=== PATIENT | male | born 1995 | race Caucasian/White ===

== ENCOUNTER 2016-11-11 19:20 | Emergency (ER) | payer BC ==
[~2016-11-11] VITALS: Ht 185.4 cm; Wt 80.0 kg
[2016-11-11 19:33] VITALS: TEMP 37; Ht 185.4 cm; Wt 80.0 kg
[2016-11-11] MEDS ORDERED: PSEU30TA20 PO (20:03)
--- NOTE | 2016-11-11 20:09 | EMERGENCY ROOM VISIT NOTE ---
ED Visit Note First contact with patient: 19:48 CHIEF COMPLAINT: knee pain HISTORY OF PRESENT ILLNESS: This 21-year-old male patient presents to the emergency department ambulatory after sustaining an injury to the right knee when playing basketball. The patient denies any other injuries besides their knee. The patient denies swelling or bruising. There is pain over the lateral aspect. They rate the pain as sharp and 7/10. The patient states they are not able to walk on it. No numbness or tingling. The patient states that he has had previous anterior cruciate ligament, meniscus and MCL tear which required surgical repair. Since then he has had LCL tear. No ankle, foot or hip pain. REVIEW OF SYSTEMS: A 6 system review of systems was completed with positives and pertinent negatives listed in the HPI. ALLERGIES: No known drug allergies MEDICATIONS: None PMH: None SOCIAL HISTORY: The patient lives locally. He is a student PHYSICAL EXAM: Vital Signs: Reviewed Nurse's notes, vital signs stable. GENERAL : This is a 21-year-old male, no acute distress, but appears in pain, well- developed, well-nourished. MENTAL STATUS: Alert, oriented to person place and time, and cooperative. MUSCULOSKELETAL: The right knee is non-swollen. There is no ecchymosis. There is no joint effusion present. The patient is tender over the lateral aspect of the right knee. There is lateral joint line tenderness. The patella does not subluxate. Range of motion is intact. Strength of the quads and hamstrings is 5/5. Brandon's is negative. Alex's and Anterior Drawer tests are negative. There is pain with varus and valgus stressing. The foot and toes are warm and well-perfused. Dorsalis pedis pulse 2+. Sensation to pain and light touch is intact. Capillary refill less than 2 seconds. EMERGENCY DEPARTMENT COURSE: I examined the patient. X-rays of the right knee were reviewed by myself and read by radiology and reveal no acute fracture. The patient was placed in a knee immobilizer under my direction and the position was satisfactory. The patient declined crutches stating he has them at home. He should follow-up with orthopedics for further evaluation and management. He declined any pain medication. The patient was discharged home in good condition. DIAGNOSIS: Right knee sprain DISCHARGE INSTRUCTIONS: Ice and elevate knee for swelling and pain. Wear knee immobilizer when up and about. Use crutches - minimal weight on foot. Ibuprofen 600 mg every 6 hrs for pain. Follow-up withOrthopedics for further evaluation and treatment - call for appointment. RIGHT KNEE 3 VIEWS CLINICAL HISTORY: right knee pain Right pain COMPARISON: 10/30/2015 DISCUSSION: J spaces are well-preserved. Prior anterior cruciate ligament repair. No significant joint effusion. There is no evidence for soft tissue swelling. IMPRESSION: No acute process. Current/Historical Medications Scheduled PRN Pseudoephedrine (Sudafed), 60 MG PO TID PRN for FLU Allergies Coded Allergies: No Known Allergies (Unverified , 01/08/16) Vital Signs Date Time Temp Pulse Resp B/P Pulse Ox O2 Delivery O2 Flow Rate FiO2 11/11/16 21:15 76 18 118/78 99 11/11/16 20:51 76 18 118/78 99 Room Air 11/11/16 19:33 37.0 96 18 93/54 99 Room Air Departure Information Impression Primary Impression: Sprain of knee Dispostion Home / Self-Care Condition GOOD Referrals No Doctor, Assigned (PCP) Johnny Dickinson M.D. Patient Instructions ED Sprain Knee, [facility] [place] [facility] Additional Instructions Ice and elevate knee for swelling and pain. Wear knee immobilizer when up and about. Use crutches - minimal weight on foot. Ibuprofen 600 mg every 6 hrs for pain. Follow-up withOrthopedics for further evaluation and treatment - call for appointment. Problem Qualifiers Primary Impression: Sprain of knee Encounter type: initial encounter Laterality: right
--- NOTE | 2016-11-11 20:40 | DIAGNOSTIC IMAGING REPORT ---
RIGHT KNEE 3 VIEWS CLINICAL HISTORY: right knee pain Right pain COMPARISON: 10/30/2015 DISCUSSION: J spaces are well-preserved. Prior anterior cruciate ligament repair. No significant joint effusion. There is no evidence for soft tissue swelling. IMPRESSION: No acute process. Electronically signed by: Devyn Travis M.D. 11/11/2016 8:39 PM Dictated Date/Time: 11/11/2016 8:38 PM
[2016-11-11 21:15] VITALS: BP 118/78; PULSE 76; O2SAT 99
== END 2016-11-11 21:15 | disposition home or self-care (01) ==
LOC: C.EDB 19:22 → C.EDD 21:15
DX: S83.91XA Sprain of unspecified site of right knee, initial encounter (principal); X58.XXXA Exposure to other specified factors, initial encounter; Y93.67 Activity, basketball